=== PATIENT | female | born 1940 | race Two or more races ===

== ENCOUNTER → 2016-07-23 | Outpatient (CLI) | payer MEDICARE, BC, OTHER ==
--- NOTE | 2016-07-23 13:16 | REP ---
LEFT ANKLE, FOUR VIEWS: HISTORY: Pain. There is no acute fracture or dislocation. The joint space is normal in appearance. An osteophyte is present on the inferior calcaneus. Soft tissue swelling is present. IMPRESSION: There is no acute fracture or dislocation. Signed by Carlos Saunders MD 07/23/2016 01:39 P
--- NOTE | 2016-07-23 15:10 | REP ---
LEFT TIBIA AND FIBULA, THREE VIEWS: HISTORY: Ankle pain. There is no acute fracture or dislocation. The visualized joint spaces are normal in appearance. An osteophyte is present on the inferior calcaneus. IMPRESSION: There is no acute fracture or dislocation. Signed by Carlos Saunders MD 07/23/2016 03:12 P
== END ==
LOC: M LRY 12:44
PROVIDERS: ATTEND Physician Assistant
DX: M25.572 Pain in left ankle and joints of left foot (principal); R60.0 Localized edema